=== PATIENT | female | born 1975 | race Caucasian/White ===

== ENCOUNTER 2017-02-15 21:01 | Emergency (ER) | payer MEDICAID, OTHER ==
[~2017-02-15] VITALS: Ht 154.9 cm; Wt 116.0 kg
[~2017-02-15 21:01] MED LIST: ACET-1757 PO; CALC-534 PO; CEFD300C37 PO; CEPH-368 PO; CYCL-259 PO; GABA300C10 PO; GABA600T2 PO; HYDR-3151 PO; HYDR-3241 PO; IBUP-1223 PO; IRON PO; LACT1CAP24 PO; LEVO25TA2 PO; LOSA50TA2 PO; METH750T2 PO; ONDA4TAB13 SL; OXYC-307 PO; PRED10TA PO; SULF1TAB23 PO; SUMA50TA3 PO; TRAM50TA2 PO; TRAZ50TA18 PO; ZOLP10TA PO; hydrocodone PO
[2017-02-15] MEDS ORDERED: HYDROcodone/APAP 5/325 TABLET ONE (22:52)
[2017-02-15] MEDS ORDERED: HYDROcodone/APAP 5/325 TABLET PO ONE (23:00)
[2017-02-15 23:38] VITALS: BP 122/56
== END 2017-02-15 23:48 | disposition home or self-care (01) ==
LOC: ED 23:20
DX: L03.116 Cellulitis of left lower limb (principal); E66.9 Obesity, unspecified; Z87.891 Personal history of nicotine dependence; Z88.0 Allergy status to penicillin; Z90.710 Acquired absence of both cervix and uterus
CPT/HCPCS: 99284

== ENCOUNTER 2017-05-29 15:46 | Emergency (ER) | payer OTHER ==
[~2017-05-29] VITALS: Ht 154.9 cm; Wt 116.0 kg
[2017-05-29] MEDS ORDERED: ASPIRIN 81 MG TABLET CHEW PO ONE (16:30)
[2017-05-29] MEDS ORDERED: MAALOX/HYOSCYAMINE/LIDOCAINE 45 ML BTL PO ONE (16:30)
[2017-05-29 16:41] LABS: BASOPHILS # (AUTO) 0.06 x10^3/uL (0-0.1); BASOPHILS % (AUTO) 1 % (0-1); EOSINOPHILS # (AUTO) 0.21 x10^3/uL (0-0.4); EOSINOPHILS % (AUTO) 3 % (1-7); LYMPHOCYTES % (AUTO) 15 % (22-44); MD NO; MEAN CORPUSCULAR HGB CONC 33.7 g/dL (32.4-35.8); MEAN CORPUSCULAR VOLUME 89.2 fL (80-100); MEAN PLATELET VOLUME 8.1 fL (7.4-10.4); MONOCYTES % (AUTO) 7 % (2-9); NEUTROPHILS # (AUTO) 5.77 x10^3/uL (1.8-6.8); NEUTROPHILS % (AUTO) 76 % (42-75); PLATELET COUNT 292 x10^3/uL (130-400); RED BLOOD COUNT 4.81 x10^6/uL (3.82-5.3); RED CELL DISTRIBUTION WIDTH 13.9 % (9.6-15.2)
[2017-05-29 16:52] LABS: ALBUMIN 3.9 g/dL (3.4-5.0); ANION GAP 8 mmol/L (5-15); CALCIUM 8.9 mg/dL (8.5-10.1); CHLORIDE 107 mmol/L (98-107); CREATININE 0.61 mg/dL (0.55-1.02)
[2017-05-29 16:56] LABS: TROPONIN I < 0.015 ng/mL (0.000-0.045)
[2017-05-29] MEDS ORDERED: ASPIRIN 81 MG TABLET CHEW ONE (17:44)
[2017-05-29] MEDS ORDERED: MAALOX/HYOSCYAMINE/LIDOCAINE 45 ML BTL ONE (17:44)
[2017-05-29] MEDS ORDERED: KETOROLAC 30 MG/1 ML IM ONE (18:00)
[2017-05-29] MEDS ORDERED: KETOROLAC 30 MG/1 ML ONE (18:37)
[2017-05-29 18:42] VITALS: BP 105/65
[2017-05-29 18:44] LABS: TROPONIN I < 0.015 ng/mL (0.000-0.045)
== END 2017-05-29 19:18 | disposition home or self-care (01) ==
LOC: ED 18:37
DX: R07.89 Other chest pain (principal); M54.6 Pain in thoracic spine; E03.9 Hypothyroidism, unspecified; E66.9 Obesity, unspecified; I10 Essential (primary) hypertension; M19.90 Unspecified osteoarthritis, unspecified site; Z79.82 Long term (current) use of aspirin; Z88.1 Allergy status to other antibiotic agents; Z88.0 Allergy status to penicillin
CPT/HCPCS: 36415; 71045; 80048; 82040; 84484; 85025; 85379; 93005; 96372; 99285; J1885

== ENCOUNTER 2017-07-27 10:38 | Emergency (ER) | payer MEDICAID ==
[~2017-07-27] VITALS: Ht 154.9 cm; Wt 121.2 kg
[2017-07-27 10:40] VITALS: BP 137/82
[2017-07-27 11:48] LABS: ALBUMIN 3.7 g/dL (3.4-5.0); ANION GAP 8 mmol/L (5-15); CALCIUM 8.6 mg/dL (8.5-10.1); CHLORIDE 111 mmol/L (98-107)
[2017-07-27 11:52] LABS: BASOPHILS # (AUTO) 0.02 x10^3/uL (0-0.1); BASOPHILS % (AUTO) 0 % (0-1); EOSINOPHILS # (AUTO) 0.13 x10^3/uL (0-0.4); EOSINOPHILS % (AUTO) 3 % (1-7); LYMPHOCYTES # (AUTO) 0.71 x10^3/uL (1-3.4); LYMPHOCYTES % (AUTO) 16 % (22-44); MD NO; MEAN CORPUSCULAR HEMOGLOBIN 30.2 pg (27.0-34.8); MEAN CORPUSCULAR HGB CONC 33.9 g/dL (32.4-35.8); MONOCYTES # (AUTO) 0.61 x10^3/uL (0.2-0.8); MONOCYTES % (AUTO) 14 % (2-9); NEUTROPHILS # (AUTO) 2.96 x10^3/uL (1.8-6.8); NEUTROPHILS % (AUTO) 67 % (42-75); PLATELET COUNT 274 x10^3/uL (130-400); RED BLOOD COUNT 4.58 x10^6/uL (3.82-5.3); RED CELL DISTRIBUTION WIDTH 14.3 % (9.6-15.2)
[2017-07-27] MEDS ORDERED: HYDROcodone/APAP 5/325 TABLET ONE (12:20)
[2017-07-27] MEDS ORDERED: ONDANSETRON ODT 4 MG ONE (12:20)
[2017-07-27] MEDS ORDERED: BACITRACIN ZINC OINT 500U/GM, 0.9 GM ONE (12:21)
[2017-07-27] MEDS ORDERED: HYDROcodone/APAP 5/325 TABLET PO ONE (12:30)
[2017-07-27] MEDS ORDERED: ONDANSETRON ODT 4 MG PO ONE (12:30)
== END 2017-07-27 12:34 | disposition home or self-care (01) ==
LOC: ED 11:52
DX: L03.115 Cellulitis of right lower limb (principal); Z90.710 Acquired absence of both cervix and uterus; I10 Essential (primary) hypertension; E03.9 Hypothyroidism, unspecified; M19.90 Unspecified osteoarthritis, unspecified site
CPT/HCPCS: 36415; 80048; 82040; 85025; 99284; Q0162

== ENCOUNTER 2017-10-08 16:46 | Emergency (ER) | payer MEDICAID ==
[~2017-10-08] VITALS: Ht 154.9 cm; Wt 119.0 kg
[2017-10-08 17:01] VITALS: BP 111/76
== END 2017-10-08 17:57 ==
LOC: ED 17:45
DX: H65.02 Acute serous otitis media, left ear (principal); J00 Acute nasopharyngitis [common cold]; E03.9 Hypothyroidism, unspecified; G25.81 Restless legs syndrome
CPT/HCPCS: 71046; 99284

== ENCOUNTER 2017-12-09 16:54 | Emergency (ER) | payer MEDICAID ==
[~2017-12-09] VITALS: Ht 154.9 cm; Wt 124.9 kg
[~2017-12-09 16:54] MED LIST changes: +TRAZ-136 PO; -TRAZ50TA18 PO
[2017-12-09 17:03] VITALS: BP 159/97
[2017-12-09 17:51] LABS: BASOPHILS # (AUTO) 0.03 x10^3/uL (0-0.1); BASOPHILS % (AUTO) 0 % (0-1); EOSINOPHILS # (AUTO) 0.12 x10^3/uL (0-0.4); EOSINOPHILS % (AUTO) 1 % (1-7); LYMPHOCYTES # (AUTO) 0.98 x10^3/uL (1-3.4); LYMPHOCYTES % (AUTO) 12 % (22-44); MD NO; MEAN CORPUSCULAR HEMOGLOBIN 30.5 pg (27.0-34.8); MEAN CORPUSCULAR HGB CONC 34.2 g/dL (32.4-35.8); MEAN CORPUSCULAR VOLUME 89.1 fL (80-100); MEAN PLATELET VOLUME 8.1 fL (7.4-10.4); MONOCYTES # (AUTO) 0.53 x10^3/uL (0.2-0.8); MONOCYTES % (AUTO) 6 % (2-9); NEUTROPHILS # (AUTO) 6.79 x10^3/uL (1.8-6.8); NEUTROPHILS % (AUTO) 80 % (42-75); PLATELET COUNT 242 x10^3/uL (130-400); RED BLOOD COUNT 4.57 x10^6/uL (3.82-5.3); RED CELL DISTRIBUTION WIDTH 14.4 % (9.6-15.2)
[2017-12-09 17:59] LABS: ALBUMIN 3.3 g/dL (3.4-5.0); ANION GAP 6 mmol/L (5-15); CALCIUM 8.2 mg/dL (8.5-10.1); CHLORIDE 110 mmol/L (98-107)
[2017-12-09 18:00] LABS: CREATININE 0.71 mg/dL (0.55-1.02)
== END 2017-12-09 19:07 | disposition home or self-care (01) ==
LOC: ED 17:56
DX: H60.501 Unspecified acute noninfective otitis externa, right ear (principal); H65.01 Acute serous otitis media, right ear; B34.9 Viral infection, unspecified; I10 Essential (primary) hypertension; E11.9 Type 2 diabetes mellitus without complications; E03.9 Hypothyroidism, unspecified; Z90.710 Acquired absence of both cervix and uterus
CPT/HCPCS: 36415; 71046; 80048; 82040; 85025; 93005; 99285

== ENCOUNTER 2017-12-30 21:15 | Emergency (ER) | payer MEDICAID ==
[~2017-12-30] VITALS: Ht 154.9 cm; Wt 124.7 kg
[2017-12-30] MEDS ORDERED: ONDANSETRON ODT 4 MG PO ONE (22:30)
[2017-12-30] MEDS ORDERED: HYDROcodone/APAP 5/325 TABLET PO ONE (22:30)
[2017-12-30] MEDS ORDERED: ONDANSETRON ODT 4 MG ONE (22:34)
[2017-12-30] MEDS ORDERED: HYDROcodone/APAP 5/325 TABLET ONE (22:35)
[2017-12-31 00:01] VITALS: BP 99/55
== END 2017-12-31 00:03 | disposition home or self-care (01) ==
LOC: ED 22:43
DX: S20.172A Other superficial bite of breast, left breast, initial encounter (principal); L03.818 Cellulitis of other sites; R11.0 Nausea; E11.9 Type 2 diabetes mellitus without complications; I10 Essential (primary) hypertension; E03.9 Hypothyroidism, unspecified; W54.0XXA Bitten by dog, initial encounter; Y93.89 Activity, other specified; Y92.098 Other place in other non-institutional residence as the place of occurrence of the external cause; Y99.8 Other external cause status
CPT/HCPCS: 99283; Q0162

== ENCOUNTER 2018-05-14 14:12 | Emergency (ER) | payer MEDICAID ==
[~2018-05-14] VITALS: Ht 154.9 cm; Wt 122.0 kg
[~2018-05-14 14:12] MED LIST changes: -TRAZ-136 PO; +TRAZ50TA66 PO
[2018-05-14] MEDS ORDERED: SODIUM CHLORIDE FLUSH 10ML SYR IVF ONE (14:30)
[2018-05-14 14:53] LABS: MEAN CORPUSCULAR HGB CONC 33.8 g/dL (32.4-35.8); MEAN CORPUSCULAR VOLUME 88.9 fL (80-100); MEAN PLATELET VOLUME 7.9 fL (7.4-10.4); PLATELET COUNT 265 x10^3/uL (130-400); RED BLOOD COUNT 4.95 x10^6/uL (3.82-5.3); RED CELL DISTRIBUTION WIDTH 14.8 % (9.6-15.2)
[2018-05-14 14:55] LABS: MD YES
[2018-05-14 15:02] LABS: ANION GAP 8 mmol/L (5-15); CALCIUM 8.5 mg/dL (8.5-10.1); CHLORIDE 104 mmol/L (98-107)
[2018-05-14 15:03] LABS: ALBUMIN 4.1 g/dL (3.4-5.0)
[2018-05-14 15:06] LABS: TROPONIN I < 0.015 ng/mL (0.000-0.045)
[2018-05-14 15:24] LABS: BASOS#(MANUAL) 0.26 x10^3/uL (0-0.1); BASOS% (MANUAL) 2 % (0-1); LYMPH#(MANUAL) 0.39 x10^3/uL (1-3.4); LYMPHS% (MANUAL) 3 % (22-44); MONOS#(MANUAL) 0.13 x10^3/uL (0.3-2.7); MONOS% (MANUAL) 1 % (2-9); SEG#(MANUAL) 12.13 x10^3/uL (1.8-6.8); SEGS% (MANUAL) 94 % (42-75)
[2018-05-14 15:25] LABS: <PLATELET ESTIMATE> ADEQUATE; <PLT MORPHOLOGY> NORMAL PLT MORPH; <RBC MORPHOLOGY> NORMAL; PMNS WITH VACUOLES 1+; SMUDGE CELLS 1+
[2018-05-14 15:46] VITALS: BP 126/72
== END 2018-05-14 16:37 | disposition home or self-care (01) ==
LOC: ED 16:15
DX: E11.65 Type 2 diabetes mellitus with hyperglycemia (principal); I10 Essential (primary) hypertension; E03.9 Hypothyroidism, unspecified; H53.9 Unspecified visual disturbance; Z90.710 Acquired absence of both cervix and uterus; Z87.891 Personal history of nicotine dependence
CPT/HCPCS: 36415; 71046; 80048; 82040; 84484; 85025; 93005; 99284

== ENCOUNTER 2018-10-08 15:50 | Outpatient (CLI) | payer MEDICAID ==
[~2018-10-08 15:50] MED LIST changes: -GABA600T2 PO; +GABA600T7 PO
== END 2018-10-08 23:59 | disposition home or self-care (01) ==
LOC: RAD 15:50
PROVIDERS: ATTEND Family Medicine
DX: M17.11 Unilateral primary osteoarthritis, right knee (principal); J98.11 Atelectasis
CPT/HCPCS: 71046

== ENCOUNTER 2019-05-14 13:49 | Emergency (ER) | payer OTHER ==
[~2019-05-14] VITALS: Ht 154.9 cm; Wt 117.8 kg
[~2019-05-14 13:49] MED LIST changes: -ACET-1757 PO; +ACET-2065 PO; +METO25TA35 PO
--- NOTE | 2019-05-14 14:10 | NUR ---
PT TO US
[2019-05-14 15:13] LABS: BASOPHILS # (AUTO) 0.01 x10^3/uL (0-0.1); BASOPHILS % (AUTO) 0 % (0-1); EOSINOPHILS % (AUTO) 0 % (1-7); LYMPHOCYTES # (AUTO) 0.51 x10^3/uL (1-3.4); LYMPHOCYTES % (AUTO) 9 % (22-44); MD NO; MEAN CORPUSCULAR HEMOGLOBIN 31.4 pg (27.0-34.8); MEAN CORPUSCULAR HGB CONC 33.4 g/dL (32.4-35.8); MEAN CORPUSCULAR VOLUME 94.1 fL (80-100); MEAN PLATELET VOLUME 7.5 fL (7.4-10.4); MONOCYTES # (AUTO) 0.41 x10^3/uL (0.2-0.8); MONOCYTES % (AUTO) 7 % (2-9); NEUTROPHILS # (AUTO) 4.71 x10^3/uL (1.8-6.8); NEUTROPHILS % (AUTO) 84 % (42-75); PLATELET COUNT 175 x10^3/uL (130-400); RED CELL DISTRIBUTION WIDTH 16.5 % (9.6-15.2)
--- NOTE | 2019-05-14 15:16 | NUR ---
pt resting in [facility], requesting pain meds, notified.
[2019-05-14 15:24] LABS: ALBUMIN 3.2 g/dL (3.4-5.0); ANION GAP 6 mmol/L (5-15); CALCIUM 8.3 mg/dL (8.5-10.1); CHLORIDE 107 mmol/L (98-107); CREATININE 0.69 mg/dL (0.55-1.02)
[2019-05-14] MEDS ORDERED: KETOROLAC 30 MG/1 ML IM ONE (16:00)
[2019-05-14] MEDS: POTASSIUM CHLORIDE 20 MEQ PACKET PO ONE ×2 (16:00→16:07)
[2019-05-14] MEDS ORDERED: POTASSIUM CHLORIDE 20 MEQ PACKET ONE (16:02)
[2019-05-14] MEDS ORDERED: KETOROLAC 30 MG/1 ML ONE (16:02)
--- NOTE | 2019-05-14 16:12 | NUR ---
REPORT FROM MARCELL MOULTON. PT MEDICATED FOR PAIN, WHICH SHE REPORTS IS 7-12/20. AWAITING COMPLETION OF POTASSIUM MEDICATION. SIDE RAILS UP, CALL LIGHT IN REACH.
[2019-05-14] MEDS ORDERED: POTASSIUM CHLORIDE 20 MEQ TAB.ER.PRT ONE (16:20)
[2019-05-14] MEDS ORDERED: ONDANSETRON ODT 4 MG ONE (16:20)
[2019-05-14 16:22] VITALS: BP 118/58
[2019-05-14] MEDS ORDERED: POTASSIUM CHLORIDE 20 MEQ TAB.ER.PRT PO ONE ×2 (16:30)
[2019-05-14] MEDS ORDERED: ONDANSETRON ODT 4 MG PO ONE ×2 (16:30)
== END 2019-05-14 16:32 | disposition home or self-care (01) ==
LOC: ED 16:20
DX: L03.115 Cellulitis of right lower limb (principal); E87.6 Hypokalemia; I10 Essential (primary) hypertension; E11.9 Type 2 diabetes mellitus without complications; E66.9 Obesity, unspecified; Z90.710 Acquired absence of both cervix and uterus
CPT/HCPCS: 36415; 71046; 80048; 82040; 85025; 93005; 93971; 96372; 99284; J1885; Q0162

== ENCOUNTER 2019-06-26 09:10 | Outpatient (CLI) | payer OTHER ==
[~2019-06-26 09:10] MED LIST changes: +REGADENOSON 0.4 MG/5 ML SYRINGE ONE
== END 2019-06-26 23:59 | disposition home or self-care (01) ==
LOC: CFH 09:10
PROVIDERS: ATTEND Internal Medicine Cardiovascular Disease
DX: I25.9 Chronic ischemic heart disease, unspecified (principal); I10 Essential (primary) hypertension
CPT/HCPCS: 78452; 93017; A9502; J2785

== ENCOUNTER 2020-05-18 18:33 | Emergency (ER) | payer OTHER ==
[~2020-05-18] VITALS: Ht 154.9 cm; Wt 118.6 kg
[~2020-05-18 18:33] MED LIST changes: -REGADENOSON 0.4 MG/5 ML SYRINGE ONE
--- NOTE | 2020-05-18 18:57 | NUR ---
INITIAL PT CONTACT. PT PRESENTS TO THE ED C/O NECK PAIN, BILAT SHOULDER PAIN AND A "MASS ON MY UPPER BACK/NECK, YESTERDAY IT WAS RED AND HOT TO THE TOUCH". PRESENT X2 YEARS. PT SITTING UPRIGHT ON GURNEY, NAD, VSS. PT DENIES ANY NEEDS AT THIS TIME. CALL LIGHT AND PERSONAL BELONGINGS WITHIN REACH.
[2020-05-18 20:22] VITALS: BP 124/83
--- NOTE | 2020-05-18 20:25 | NUR ---
Patient given discharge instructions and they have confirmed that they understand the instructions. Patient ambulatory with steady gait.
== END 2020-05-18 20:32 | disposition home or self-care (01) ==
LOC: ED 19:35
DX: M54.12 Radiculopathy, cervical region (principal); M54.14 Radiculopathy, thoracic region
CPT/HCPCS: 99283

== ENCOUNTER 2020-09-16 00:35 | Emergency (ER) | payer SELFPAY ==
[~2020-09-16] VITALS: Ht 162.6 cm; Wt 116.0 kg
[~2020-09-16 00:35] MED LIST changes: -CYCL-259 PO; +CYCL10TA2 PO; +METH-640 PO; -METH750T2 PO; -OXYC-307 PO; +OXYC-380 PO
--- NOTE | 2020-09-16 00:43 | NUR ---
INITIAL PT CONTACT. PT PRESENTS TO ED VIA EMS C/O SHARP LEFT SIDED CHEST PAIN X45 MINUTES. PT STATES SHE WAS LAYING IN BED TRYING TO FALL ASLEEP AND BEGAN HAVING THIS PAIN. PT DESCRIBES THIS PAIN HAS "SHARP AND TIGHTNESS", PT STATES PAIN IS WORSE WITH PALPATION. PT WAS GIVE 0.4 NTG, 4MG ZOFRAN AND ASA. PT SITTING UPRIGHT ON GURNEY, NADN, VSS. PT PLACED ON CONTINUOUS PULSE OX AND CARDAIC MONITORING. EKG COMPLETE UPON ARRIVAL. AWAITING ERP
[2020-09-16] MEDS ORDERED: MORPHINE SULFATE 4 MG/ML, 1ML ONE ×2 (00:52→04:31)
[2020-09-16] MEDS ORDERED: ONDANSETRON 2MG/ML, 2ML ONE (00:52)
[2020-09-16] MEDS: MORPHINE SULFATE 4 MG/ML, 1ML IVPush PRN ×2 (00:58→04:32)
[2020-09-16] MEDS ORDERED: ONDANSETRON 2MG/ML, 2ML IVPush ONE (01:00)
[2020-09-16] MEDS ORDERED: SODIUM CHLORIDE 0.9% 1,000ML IVBOLUS ONE (01:00)
[2020-09-16] MEDS ORDERED: SODIUM CHLORIDE FLUSH 10ML SYR IVF ONE (01:00)
[2020-09-16 01:31] LABS: ALBUMIN 3.8 g/dL (3.4-5.0); ANION GAP 5 mmol/L (5-15); CALCIUM 8.7 mg/dL (8.5-10.1); CHLORIDE 110 mmol/L (98-107)
[2020-09-16 01:41] LABS: BASOPHILS % (AUTO) 1 % (0-1); EOSINOPHILS % (AUTO) 4 % (1-7); LYMPHOCYTES % (AUTO) 15 % (22-44); MEAN CORPUSCULAR HEMOGLOBIN 32.3 pg (27.0-34.8); MEAN CORPUSCULAR HGB CONC 34.4 g/dL (32.4-35.8); MEAN PLATELET VOLUME 8.3 fL (7.4-10.4); MONOCYTES % (AUTO) 9 % (2-9); NEUTROPHILS % (AUTO) 72 % (42-75); PLATELET COUNT 258 x10^3/uL (130-400); RED BLOOD COUNT 4.29 x10^6/uL (3.82-5.3); RED CELL DISTRIBUTION WIDTH 13.8 % (9.6-15.2)
[2020-09-16 01:42] LABS: ALANINE AMINOTRANSFERASE 24 U/L (12-78); ALKALINE PHOSPHATASE 51 U/L (45-117); BILIRUBIN,TOTAL 0.2 mg/dL (0.2-1.0); FREE T4 (FREE THYROXINE) 0.96 ng/dL (0.76-1.46); TOTAL PROTEIN 6.9 g/dL (6.4-8.2); TROPONIN I < 0.015 ng/mL (0.000-0.045)
[2020-09-16 01:46] LABS: MD NO
--- NOTE | 2020-09-16 01:48 | NUR ---
PT REPORTS COMPLETE RELIEF OF PAIN FOLLOWING INSPECTOR REPAIRER. PT DENIES ANY OTHER COMPLAINTS AT THIS TIME. NO ADDITIONAL NEEDS. CALL LIGHT AND PERSONAL BELONGINGS WITHIN REACH.
--- NOTE | 2020-09-16 04:33 | NUR ---
PT C/O HEADACHE AND REQUESTING ADDITIONAL PAIN MEDICATION. NO CHEST PAIN AT THIS TIME. PT MEDICATED PER EMAR, DENIES ANY ADDITIONAL NEEDS AT THIS TIME. CALL LIGHT AND BELONGINGS WITHIN REACH.
[2020-09-16 04:44] LABS: TROPONIN I < 0.015 ng/mL (0.000-0.045)
[2020-09-16 05:08] VITALS: BP 102/70
--- NOTE | 2020-09-16 05:16 | NUR ---
Patient given discharge instructions and they have confirmed that they understand the instructions. Patient ambulatory with steady gait. Pt provided taxi voucher upon d/c.
== END 2020-09-16 05:18 | disposition home or self-care (01) ==
LOC: ED 01:05
DX: R07.2 Precordial pain (principal); I10 Essential (primary) hypertension; E11.9 Type 2 diabetes mellitus without complications; E03.9 Hypothyroidism, unspecified; Z87.891 Personal history of nicotine dependence; Z88.0 Allergy status to penicillin
CPT/HCPCS: 36415; 71045; 80053; 83735; 83880; 84439; 84443; 84484; 84703; 85025; 85379; 93005; 96361; 96374; 96375; 96376; 99285; J2270; J2405; J7030